=== PATIENT | female | born 1955 | race Caucasian/White ===

== ENCOUNTER 2017-01-25 11:06 | Emergency (ER) | payer MEDICAID ==
[2017-01-25 11:14] VITALS: TEMP 97.7; O2SAT 98
--- NOTE | 2017-01-25 11:48 | C.PDOC ---
History Of Present Illness 61 female come in for evaluation of skin grown to Right occipital scalp noted for past month. Pt sts, (+) surrounding pain and bloody oozing from skin mass. Otherwise, pt denies known trauma or injury to head area, severe headache, dizziness, visual changes, focal deficits, neck pain, CP, SOB, denies any other active complaints. Time Seen by Provider: 01/25/17 11:39 Chief Complaint (Nursing): Abnormal Skin Integrity History Per: Patient Onset/Duration Of Symptoms: Gradual Past Medical History Reviewed: Historical Data, Nursing Documentation, Vital Signs Vital Signs: Last Vital Signs Temp 97.7 F 01/25/17 11:11 Pulse 75 01/25/17 13:04 Resp 18 01/25/17 13:04 BP 132/78 01/25/17 13:04 Pulse Ox 98 01/25/17 13:04 - Medical History PMH: HTN, Hypercholesterolemia Surgical History: No Surg Hx Family History: States: No Known Family Hx - Social History Hx Alcohol Use: No Hx Substance Use: No - Immunization History Hx Tetanus Toxoid Vaccination: No Hx Influenza Vaccination: No Hx Pneumococcal Vaccination: No Review Of Systems Except As Marked, All Systems Reviewed And Found Negative. Constitutional: Negative for: Fever, Chills Eyes: Negative for: Vision Change ENT: Negative for: Throat Pain Cardiovascular: Negative for: Chest Pain, Palpitations Respiratory: Negative for: Cough, Shortness of Breath, Wheezing Gastrointestinal: Negative for: Nausea, Vomiting, Abdominal Pain, Diarrhea Genitourinary: Negative for: Dysuria Skin: Positive for: Lesions Neurological: Negative for: Weakness, Numbness, Altered Mental Status, Dizziness Physical Exam - Physical Exam Appears: Well, Non-toxic, No Acute Distress Skin: Normal Color, Warm, Dry Head: Normacephalic, Other ((+) 2cm skin grown on Right side occipital scalp with "stalk appearence on peduncle" with minimal bloody oozing. No edema, no erythema, no flactulance.) Eye(s): bilateral: PERRL Ear(s): Bilateral: Normal Nose: No Flaring, No Discharge Oral Mucosa: Moist, No Drooling Throat: No Erythema, No Drooling Neck: Supple Cardiovascular: Rhythm Regular Respiratory: No Decreased Breath Sounds, No Accessory Muscle Use, No Stridor, No Wheezing Gastrointestinal/Abdominal: Soft, No Tenderness, No Distention, No Guarding Extremity: No Tenderness, No Deformity, No Swelling Neurological/Psych: Oriented x3, Normal Speech, Cerebellar Signs, Normal Motor, Normal Sensation, Normal Reflexes ED Course And Treatment O2 Sat by Pulse Oximetry: 98 Pulse Ox Interpretation: Normal - CT Scan/US CT head Other Rad Studies (CT/US): Radiology Report Reviewed CT/US Interpretation: PROCEDURE: CT HEAD WITHOUT CONTRAST. HISTORY: pain. COMPARISON: None available. TECHNIQUE: Axial computed tomography images were obtained through the head/brain without intravenous contrast. Radiation dose: Total exam DLP = 657.05 mGy-cm. This CT exam was performed using one or more of the following dose reduction techniques: Automated exposure control, adjustment of the mA and/or kV according to patient size, and/or use of iterative reconstruction technique. FINDINGS: HEMORRHAGE: No intracranial hemorrhage. BRAIN: No mass effect or edema. Intracranial atherosclerosis. Scattered periventricular and subcortical white matter hypodensities, which are nonspecific, but often seen with chronic microvascular ischemic disease. Please note that MRI with diffusion imaging is more sensitive in the detection of acute ischemic event. VENTRICLES: No hydrocephalus. CALVARIUM: Unremarkable. PARANASAL SINUSES: Unremarkable as visualized. No significant inflammatory changes. MASTOID AIR CELLS: Unremarkable as visualized. No inflammatory changes. OTHER FINDINGS: None. IMPRESSION: Nonspecific white matter changes. Progress Note: On re-evauation, pt is afebrile, hemodynamicaly stable. non- toxic. Ambulaoty rin ED with stabe gait. Neurologicaly intact. Imaging results review nad appears normal. Pt ahs clinical findings c/w scalp mass r/o skin ca. Pt advised and ref. to f/u with PMD, derm in 2-3 days for re- evaluation and biopsy. return to ED if any worsening or new changes. Disposition Counseled Patient/Family Regarding: Diagnosis, Need For Followup - Disposition Referrals: [facility] at [facility] [Outside] Disposition: HOME/ ROUTINE Disposition Time: 12:45 Condition: STABLE Additional Instructions: FOLLOW UP WITH PMD, DERMATOLOGY IN 1-2 DAYS FOR RE-EVALUATION AND BIOPSY. RETURN TO ED IF ANY WORSENING OR NEW CHANGES. Instructions: Skin Cancer Prevention (ED) Forms: [employer] (Ukrainian) Print Language: VENEZUELAN - Clinical Impression Clinical Impression: Skin mass
--- NOTE | 2017-01-25 12:41 | CT ---
PROCEDURE: CT HEAD WITHOUT CONTRAST. HISTORY: pain COMPARISON: None available. TECHNIQUE: Axial computed tomography images were obtained through the head/brain without intravenous contrast. Radiation dose: Total exam DLP = 657.05 mGy-cm. This CT exam was performed using one or more of the following dose reduction techniques: Automated exposure control, adjustment of the mA and/or kV according to patient size, and/or use of iterative reconstruction technique. FINDINGS: HEMORRHAGE: No intracranial hemorrhage. BRAIN: No mass effect or edema. Intracranial atherosclerosis. Scattered periventricular and subcortical white matter hypodensities, which are nonspecific, but often seen with chronic microvascular ischemic disease. Please note that MRI with diffusion imaging is more sensitive in the detection of acute ischemic event. VENTRICLES: No hydrocephalus. CALVARIUM: Unremarkable. PARANASAL SINUSES: Unremarkable as visualized. No significant inflammatory changes. MASTOID AIR CELLS: Unremarkable as visualized. No inflammatory changes. OTHER FINDINGS: None. IMPRESSION: Nonspecific white matter changes.
[2017-01-25 13:04] VITALS: BP 132/78; PULSE 75; RESP 18
== END 2017-01-25 13:06 | disposition home or self-care (01) ==
LOC: C.ER 11:06
DX: R22.0 Localized swelling, mass and lump, head (principal)